=== PATIENT | male | born 1975 | race Caucasian/White ===

== ENCOUNTER 2017-12-16 22:00 | Emergency (ER) | payer OTHER ==
--- NOTE | 2017-12-16 22:50 | ED PDOC ---
Arrival/HPI - General Chief Complaint: Shortness Of Breath Time Seen by Provider: 12/16/17 22:22 Historian: Patient - History of Present Illness Narrative History of Present Illness (Text): 12/16/17 22:48 42 year old male, with no significant past medical history, presents to the emergency department complaining of not feeling well following the beginning of fasting for his holiday. Patient states he last ate last night until earlier this morning he began developing a headache and stomach discomfort. Patient was also feeling shortness of breath. He states that he did have some toast earlier that day. Patient denies any fever, chills, chest pain, nausea, vomiting, diarrhea, urinary symptoms, back pain, neck pain, dizziness, or any other complaints. PMD: Dr. Ute Barton Time/Duration: Other (This morning ) Symptom Onset: Gradual Symptom Course: Unchanged Activities at Onset: Light Context: Home Past Medical History - Provider Review Nursing Documentation Reviewed: Yes - Psychiatric Hx Substance Use: No Family/Social History - Physician Review Nursing Documentation Reviewed: Yes Family/Social History: No Known Family HX Smoking Status: Never Smoked Hx Alcohol Use: No Hx Substance Use: No Allergies/Home Meds Allergies/Adverse Reactions: Allergies No Known Allergies Allergy (Verified 12/16/17 22:11) Home Medications: Home Meds Medication Instructions Recorded Confirmed traMADol [Ultram] 50 mg PO BID 12/16/17 12/16/17 Review of Systems - Physician Review All systems were reviewed & negative as marked: Yes - Review of Systems Constitutional: absent: Fevers, Other (Chills) Respiratory: SOB Cardiovascular: absent: Chest Pain Gastrointestinal: Abdominal Pain. absent: Diarrhea, Nausea, Vomiting Genitourinary Male: absent: Dysuria, Frequency, Hematuria Musculoskeletal: absent: Back Pain, Neck Pain Neurological: Headache. absent: Dizziness Physical Exam Vital Signs Reviewed: Yes Vital Signs Temp Pulse Resp BP Pulse Ox 12/16/17 22:33 97.8 F 96 H 22 141/89 100 Temperature: Afebrile Blood Pressure: Normal Pulse: Regular Respiratory Rate: Normal Appearance: Positive for: Well-Appearing, Non-Toxic, Comfortable Pain Distress: None Mental Status: Positive for: Alert and Oriented X 3 - Systems Exam Head: Present: Atraumatic, Normocephalic Pupils: Present: PERRL Extroacular Muscles: Present: EOMI Conjunctiva: Present: Normal Mouth: Present: Moist Mucous Membranes Neck: Present: Normal Range of Motion Respiratory/Chest: Present: Clear to Auscultation, Good Air Exchange. No: Respiratory Distress, Accessory Muscle Use Cardiovascular: Present: Regular Rate and Rhythm, Normal S1, S2. No: Murmurs Abdomen: No: Tenderness, Distention, Peritoneal Signs Back: Present: Normal Inspection Upper Extremity: Present: Normal Inspection. No: Cyanosis, Edema Lower Extremity: Present: Normal Inspection. No: Edema Neurological: Present: GCS=15, CN II-XII Intact, Speech Normal Skin: Present: Warm, Dry, Normal Color. No: Rashes Psychiatric: Present: Alert, Oriented x 3, Normal Insight, Normal Concentration Medical Decision Making ED Course and Treatment: 12/16/17 22:49 Impression: 42 year old male presents complaining of developing a headache, stomach discomfort, and shortness of breath following the beginning of fasting for his holiday. Physical exam is normal. Plan: -- CT Head w/o contrast -- EKG -- Labs -- Chest X-ray -- IV Fluids -- Abdomen Complete US -- Reassess and disposition Progress Notes: 12/16/17 23:31 EKG shows NSR at 94 BPM with normal intervals. Normal EKG. Interpreted by me. EXAM: US Abdomen Complete Dictated and Authenticated by: Consuelo García MD 12/17/2017 12:26 AM IMPRESSION: Pancreas obscured by bowel gas; no gallstones or ductal dilatation Patient was not tender over the gallbladder EXAM: CT Head Without Intravenous Contrast Dictated and Authenticated by: Consuelo García MD 12/17/2017 12:29 AM IMPRESSION: No acute intracranial abnormality 12/17/17 00:38 CXR Impression: As read by me, no acute process. 12/17/17 03:04 On re-evaluation, patient feels better and is in no acute distress. I have discussed the results and plan with the patient, who expresses understanding. Patient in agreement with plan to be discharged home. Patient is stable for discharge. Patient was instructed to follow up with physician or return if symptoms worsen or new concerning symptoms arise. - Lab Interpretations Lab Results: 12/16/17 23:16 12/16/17 23:16 Lab Results 12/16/17 23:16: WBC 7.3, RBC 5.29, Hgb 13.1 L, Hct 39.7 L, MCV 75.0 L, MCH 24.8 L, MCHC 33.0, RDW 14.3, Plt Count 221, MPV 9.6 12/16/17 23:16: Sodium 145, Potassium 3.8, Chloride 105, Carbon Dioxide 26, Anion Gap 18, BUN 12, Creatinine 0.7 L, Est GFR ( Amer) > 60, Est GFR ( Non-Af Amer) > 60, Random Glucose 112 H, Calcium 10.0, Total Bilirubin 1.4 H, AST 28, ALT 33, Alkaline Phosphatase 50, Lactate Dehydrogenase 455, Total Creatine Kinase 136, Troponin I < 0.01, Total Protein 7.6, Albumin 4.7, Globulin 2.9, Albumin/Globulin Ratio 1.6, Lipase 66 12/16/17 23:16: PT 11.8, INR 1.03, APTT 27.5 I have reviewed the lab results: Yes - RAD Interpretation Radiology Orders: 12/16/17 23:02 HEAD W/O CONTRAST [CT] Stat CHEST PORTABLE [RAD] Stat 12/16/17 23:03 ABDOMEN COMPLETE [US] Stat - EKG Interpretation Interpreted by ED Physician: Yes Type: 12 lead EKG - Medication Orders Current Medication Orders: Discontinued Medications Sodium Chloride (Sodium Chloride 0.9%) 1,000 mls @ 999 mls/hr IV .Q1H1M STA Stop: 12/17/17 00:31 Last Admin: 12/17/17 00:00 Dose: 999 mls/hr eMAR Start Stop Document 12/17/17 00:00 CNR (Rec: 12/17/17 00:00 CNR [facility] [place]-[id number]) Intravenous Solution Start Date 12/17/17 Start Time 00:00 - Scribe Statement The provider has reviewed the documentation as recorded by the Zac Ledezma Provider Scribe Attestation: All medical record entries made by the Fernandoibavtar were at my direction and personally dictated by me. I have reviewed the chart and agree that the record accurately reflects my personal performance of the history, physical exam, medical decision making, and the department course for this patient. I have also personally directed, reviewed, and agree with the discharge instructions and disposition. Disposition/Present on Arrival - Present on Arrival Any Indicators Present on Arrival: No History of DVT/PE: No History of Uncontrolled Diabetes: No Urinary Catheter: No History of Decub. Ulcer: No History Surgical Site Infection Following: None - Disposition Have Diagnosis and Disposition been Completed?: Yes Diagnosis: Gastritis, Headache Disposition: HOME/ ROUTINE Disposition Time: 03:04 Patient Plan: Discharge Patient Problems: Current Active Problems Problem Status Onset Gastritis Acute Headache Acute Condition: GOOD Discharge Instructions (ExitCare): Gastritis (DC), Tension Headache (DC) Additional Instructions: Avoid prolonged fasting/maintain proper diet/follow up with your doctor this week Referrals: Mercy aBrton MD [Primary Care Provider] - Follow up with primary Forms: [employer] (Greek)
[2017-12-16 23:25] LABS: HEMOGLOBIN 13.1 g/dL (14.0-18.0); MEAN CORPUSCULAR HEMOGLOBIN 24.8 pg (25.0-35.0); MEAN PLATELET VOLUME 9.6 fl (7.0-11.0); RBC 5.29 10^6/uL (3.5-6.1); RED CELL DISTRIBUTION WIDTH 14.3 % (11.5-14.5); WHITE BLOOD COUNT 7.3 10^3/ul (4.5-11.0)
[2017-12-16 23:31] LABS: ALB/GLOB RATIO 1.6 (1.1-1.8); ALBUMIN 4.7 g/dL (3.0-4.8); ALT/SGPT 33 U/L (7-56); AST/SGOT 28 U/L (17-59); BLOOD UREA NITROGEN 12 mg/dL (7-21); GFR AFRICAN-AMERICAN > 60; GFR NON-AFRICAN AMERICAN > 60; LIPASE 66 U/L (23-300)
[2017-12-16] MEDS ORDERED: Sodium Chloride 0.9% 1,000 ML IV STA (23:31)
[2017-12-16 23:41] LABS: INR 1.03 (0.93-1.08); PARTIAL THROMBOPLASTIN TIME 27.5 Seconds (25.1-36.5); PROTHROMBIN TIME 11.8 SECONDS (9.4-12.5)
[2017-12-16 23:42] LABS: TROPONIN I < 0.01 ng/mL
--- NOTE | 2017-12-17 00:26 | US ---
EXAM: US Abdomen Complete EXAM DATE/TIME: 12/16/2017 11:03 PM CLINICAL HISTORY: 42 years old, male; Pain; Abdominal pain; Generalized TECHNIQUE: Real-time ultrasound of the abdomen (complete) with image documentation. COMPARISON: There are no prior studies for comparison. FINDINGS: Liver: Liver is unremarkable. There is hepatopedal flow in the main portal vein. Gallbladder: Gallbladder is only partially distended with no stones, sludge or wall thickening. Common bile duct: Common bile duct measures 3 mm in diameter. Pancreas: Pancreas is almost completely obscured by bowel gas. Kidneys: Kidneys are unremarkable. Spleen: Spleen is unremarkable. Aorta: Visualized portions of the aorta and inferior vena cava are unremarkable. Inferior vena cava: See above. IMPRESSION: Pancreas obscured by bowel gas; no gallstones or ductal dilatation Patient was not tender over the gallbladder
--- NOTE | 2017-12-17 00:29 | CT ---
EXAM: CT Head Without Intravenous Contrast EXAM DATE/TIME: 12/16/2017 11:02 PM CLINICAL HISTORY: 42 years old, male; Pain; Headache TECHNIQUE: Axial computed tomography images of the head/brain without intravenous contrast. All CT scans at this facility use one or more dose reduction techniques, viz.: automated exposure control; ma/kV adjustment per patient size (including targeted exams where dose is matched to indication; i.e. head); or iterative reconstruction technique. Coronal and sagittal reformatted images were created and reviewed. COMPARISON: There are no prior studies for comparison. FINDINGS: Brain and ventricles: Ventricles are normal in size and configuration. There is no midline shift. There are no intra-axial or extra-axial mass lesions or areas of hemorrhage. There are no abnormal fluid collections. Taylor-white differentiation is maintained. Bones: Cranial vault is intact. Soft tissues: unremarkable Sinuses: There is no acute sinusitis. Ears and mastoids: Middle ears and mastoids are unremarkable Orbits: Orbital contents are unremarkable. IMPRESSION: No acute intracranial abnormality
[2017-12-17 03:15] VITALS: BP 142/80; PULSE 86; RESP 18; TEMP 97.6; O2SAT 96
--- NOTE | 2017-12-17 09:25 | RAD ---
HISTORY: fever COMPARISON: No prior. FINDINGS: LUNGS: No active pulmonary disease. PLEURA: No significant pleural effusion identified, no pneumothorax apparent. CARDIOVASCULAR: Normal. OSSEOUS STRUCTURES: No significant abnormalities. VISUALIZED UPPER ABDOMEN: Normal. OTHER FINDINGS: None. IMPRESSION: No active disease.
--- NOTE | 2017-12-17 16:52 | CARD ---
APPROVED REPORT EKG Measurement Heart [id number] <Conclusion> Normal sinus rhythm Normal ECG
== END 2017-12-17 03:14 | disposition home or self-care (01) ==
LOC: ED 22:00
DX: K29.70 Gastritis, unspecified, without bleeding (principal); R51 Headache
CPT/HCPCS: 70450; 71045; 76700; 80053; 82550; 83615; 83690; 84484; 85027; 85610; 85730; 93005; 99284; J7040